=== PATIENT | female | born 1975 | race Caucasian/White ===

== ENCOUNTER 2022-01-01 13:40 | Outpatient (CLI) | payer BC | END 2022-01-01 13:41 | disposition home or self-care (01) | LOC: CSHMAMMO 13:40 | PROVIDERS: ATTEND Family Medicine Sports Medicine | DX: Z12.31 Encounter for screening mammogram for malignant neoplasm of breast (principal); N63.41 Unspecified lump in right breast, subareolar | CPT/HCPCS: 77063; 77067 ==